=== PATIENT | male | born 1960 | race Caucasian/White ===

== ENCOUNTER → 2017-01-27 | Outpatient (CLI) | payer OTHER ==
[~2017-01-27] MED LIST: COREG 25MG25 MG/TAB PO; DESYREL 100MG100 MG PO; LATUDA120 MG PO; MOBIC 7.5MG7.5 MG PO; NEURONTIN600 MG/TAB PO; NORVASC 5MG5 MG/TAB PO; NOVOLOG FLEX100 U/ML SQ; PRILOSEC 20MG20 MG PO; ZANTAC 150150 MG PO; ZESTRIL40 MG PO
[2017-01-27 09:21] VITALS: BP 151/83; PULSE 56
[2017-01-27 10:15] VITALS: BP 148/72; PULSE 50
[2017-01-27 10:16] VITALS: BP 147/72; PULSE 58
[2017-01-27 10:18] VITALS: BP 140/69; PULSE 58
[2017-01-27 10:19] VITALS: BP 138/74; PULSE 56
== END ==
LOC: COL.CARD 09:00
DX: I20.9 Angina pectoris, unspecified (principal); I10 Essential (primary) hypertension; E11.9 Type 2 diabetes mellitus without complications; Z79.4 Long term (current) use of insulin
CPT/HCPCS: A9502; J2785